=== PATIENT | female | born 1965 | race African-American/Black ===

== ENCOUNTER → 2017-02-02 | Outpatient (CLI) | payer BC ==
[~2017-02-02] MED LIST: AVANDAMET PO; AVANDAMET1 TAB PO; BACTRIM DS TABL1 TAB PO; BACTROBAN15 GM; BENAZEPRIL HCL10 MG PO; CRESTOR PO; DARVOCET-N 1001 TAB PO; ELOCON15 G1; IBUPROFEN PO; LEVEMIR SQ; MOBIC15 MG PO; NERVE PILL PO; NEURONTIN; PERCOCET5/325 PO; PHENERGAN PO; PLAQUENIL200 MG; PLENDIL; PLENDIL PO; PRAVACHOL PO; PYRIDIUM PO; VICODIN 5/1 TAB 5/50 PO; ZANTAC PO
--- NOTE | ~2017-02-02 | EKG ---
PATIENT: DALE KWON UNIT #: [id number] Ventricular Rate: 88 BPM Atrial Rate: 88 BPM P-R Interval: 178 ms QRS Duration: 88 ms Q-T Interval: 364 ms QTC Calculation(Bezet): 440 ms P [place]: 11 degrees Calculated R [place]: -29 degrees Calculated T [place]: 11 degrees Diagnosis Line: Normal sinus rhythm Diagnosis Line: Possible Anterolateral infarct , age undetermined Diagnosis Line: Abnormal ECG Diagnosis Line: No previous ECGs available Diagnosis Line: Confirmed by DARLENE ARRIOLA MD ([id number]) on 02/03/2017 Diagnosis Line: 5:06:46 AM INTERPRETING MD: ZEINAB MYERS
== END | disposition home or self-care (01) ==
LOC: CECH 19:50
DX: E11.9 Type 2 diabetes mellitus without complications (principal); R03.0 Elevated blood-pressure reading, without diagnosis of hypertension; Z86.73 Personal history of transient ischemic attack (TIA), and cerebral infarction without residual deficits
CPT/HCPCS: 93005